=== PATIENT | male | born 1990 | race Hispanic/Latino ===

== ENCOUNTER 2019-07-23 23:20 | Emergency (ER) | payer OTHER ==
[2019-07-24] MEDS ORDERED: ONDANSETRON HCL 4 MG/2 ML VIAL ONE (00:18)
[2019-07-24] MEDS ORDERED: SODIUM CHLORIDE 0.9% 1000ML 1,000 ML IV ONE ×2 (00:18→00:20)
== END 2019-07-24 01:18 | disposition home or self-care (01) ==
LOC: EDH 23:20
DX: E86.9 Volume depletion, unspecified (principal); R10.13 Epigastric pain; F43.9 Reaction to severe stress, unspecified; F32.9 Major depressive disorder, single episode, unspecified; F41.9 Anxiety disorder, unspecified
CPT/HCPCS: 93005; 96361; 96374; 99284; J2405; J7030 ×2

== ENCOUNTER 2024-07-05 12:01 | Emergency (ER) | payer SELFPAY ==
[~2024-07-05] VITALS: Ht 180.3 cm; Wt 96.2 kg
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
[2024-07-05] MEDS: ibuPROFEN 800 MG TAB PO ONE (12:58)
[2024-07-05] MEDS: dexaMETHasone SOD PHOSPHATE 4 MG/ML 1ML VIAL IM ONE (12:58)
[2024-07-05] MEDS ORDERED: METH4TAB3 PO (12:59)
[2024-07-05] MEDS ORDERED: IBUP-2077 PO (12:59)
[2024-07-05 13:24] VITALS: BP 125/68; PULSE 67; RESP 18; O2SAT 100
--- NOTE | 2024-07-05 13:57 | HMCIMG ---
CHEST 1VW HISTORY: Chest wall tenderness COMPARISON: None FINDINGS: A frontal projection of the chest was obtained. No acute pulmonary infiltrates is seen. The heart is normal in size. Prominent interstitial markings are seen. No evidence of aortic calcification is seen. IMPRESSION: 1. No acute pulmonary infiltrate is seen.
== END 2024-07-05 13:24 | disposition home or self-care (01) ==
LOC: EDH 12:01
DX: M94.0 Chondrocostal junction syndrome [Tietze] (principal); G89.29 Other chronic pain; M54.50 Low back pain, unspecified
CPT/HCPCS: 99283; 71045; 96372; J1100